=== PATIENT | male | born 1965 | race African-American/Black ===

== ENCOUNTER 2018-06-06 22:31 | Emergency (ER) | payer OTHER ==
[~2018-06-06] VITALS: Ht 177.8 cm; Wt 93.0 kg
[2018-06-07] MEDS ORDERED: IBUPROFEN 600MG TABLET PO STA (03:44)
[2018-06-07 05:56] VITALS: BP 110/67
== END 2018-06-07 06:59 | disposition home or self-care (01) ==
LOC: ER 22:31
DX: R60.0 Localized edema (principal); B35.6 Tinea cruris; F12.10 Cannabis abuse, uncomplicated; F17.210 Nicotine dependence, cigarettes, uncomplicated; Z98.890 Other specified postprocedural states
CPT/HCPCS: 99283

== ENCOUNTER 2018-06-08 01:36 | Emergency (ER) | payer OTHER ==
[~2018-06-08] VITALS: Ht 180.3 cm; Wt 98.0 kg
[2018-06-08 02:52] VITALS: BP 133/83
== END 2018-06-08 03:47 | disposition left against medical advice (07) ==
LOC: ER 01:36
DX: Z53.21 Procedure and treatment not carried out due to patient leaving prior to being seen by health care provider (principal)

== ENCOUNTER 2018-06-09 03:54 | Emergency (ER) | payer OTHER ==
[~2018-06-09] VITALS: Ht 177.8 cm; Wt 103.0 kg
[2018-06-09 04:25] VITALS: BP 145/89
[2018-06-09] MEDS ORDERED: IBUPROFEN 600MG TABLET PO STA (06:47)
== END 2018-06-09 06:50 | disposition home or self-care (01) ==
LOC: ER 03:54
DX: M60.9 Myositis, unspecified (principal); F12.10 Cannabis abuse, uncomplicated; R60.9 Edema, unspecified; F17.210 Nicotine dependence, cigarettes, uncomplicated; Z98.890 Other specified postprocedural states
CPT/HCPCS: 99282